=== PATIENT | female | born 1975 | race Caucasian/White ===

== ENCOUNTER 2021-01-31 07:19 | Day surgery (SDC) | payer OTHER ==
[~2021-01-31] VITALS: Ht 162.6 cm; Wt 123.8 kg
[~2021-01-31 07:19] MED LIST: AMITRIPTYLINE H50 MG PO; LIPITOR20 MG PO; XYZAL PO
[2021-01-31 07:49] LABS: HEMATOCRIT 31.7 % (36.0-48.0); HEMOGLOBIN 9.8 g/dL (12-16); MCH 23.7 pg (26.0-34.0); MCHC 30.8 g/dL (31.0-37.0); MEAN PLATELET VOLUME 7.2 fL (7.4-10.4); RBC 4.12 10x6/uL (4.00-5.40); RDW 15.2 % (11.5-14.5); WBC 11.6 10x3/uL (4.8-10.8)
[2021-01-31 07:58] LABS: HCG SERUM NEGATIVE (NEGATIVE)
[2021-01-31 08:45] VITALS: BP 139/56; Ht 162.6 cm; Wt 123.8 kg
--- NOTE | 2021-01-31 12:42 | NUR ---
1237 IV DC'D. CATHETER TIP INTACT. NO BLEEDING, REDNESS OR SWELLING AT SITE. COBAN DRESSING APPLIED. REVIEWED DISCHARGE INSTRUCTIONS WITH PT AND HER [id number] AND BOTH VOICE UNDERSTANDING OF THESE INSTRUCTIONS.
== END 2021-01-31 13:02 | disposition home or self-care (01) ==
LOC: D.OPS 07:19
PROVIDERS: Anesthesiology; ATTEND Obstetrics & Gynecology Maternal & Fetal Medicine
DX: N93.9 Abnormal uterine and vaginal bleeding, unspecified (principal); N92.0 Excessive and frequent menstruation with regular cycle